=== PATIENT | male | born 1975 | race Caucasian/White ===

== ENCOUNTER → 2017-05-26 14:47 | Outpatient (POV) | payer BC, SELFPAY | PROVIDERS: Visit Provider Physician Assistant | DX: Z00.00 Encounter for general adult medical examination without abnormal findings (principal) ==

== ENCOUNTER → 2017-07-21 16:37 | Outpatient (CLI) | payer BC, SELFPAY ==
[2017-07-21 17:21] LABS: Basophils % 0.6 % (0.1-2.0); Eosinophils # 0.1 K/mm3 (0.0-0.4); Eosinophils % 2.1 % (0.1-12.0); Hemoglobin 12.5 g/dL (14.1-18.0); Lymphocytes # 1.2 K/mm3 (0.7-4.5); Lymphocytes % 27.8 K/mm3 (10-50); Mean Corpuscular HGB Conc 33.8 g/dL (31.8-35.4); Mean Corpuscular Hemoglobin 30.9 pg (27.0-31.2); Mean Corpuscular Volume 91.4 fl (80-94); Mean Platelet Volume 6.7 fl (7.4-10.4); Monocytes # 0.4 K/mm3 (0.1-1.0); Neutrophils # 2.5 K/mm3 (1.8-7.8); Neutrophils % 59.5 % (37.0-80.0); Platelet Count 273 K/mm3 (142-424); Red Blood Count 4.05 M/mm3 (4.60-6.20); Red Cell Distribution Width 12.3 % (11.5-17.5); White Blood Count 4.2 K/mm3 (4.8-10.8)
[2017-07-21 18:00] LABS: Anion Gap 10.1 mEq/L (5-15); Blood Urea Nitrogen 19 mg/dL (7-18); Carbon Dioxide 29 mmol/L (21.0-32.0); Chloride 87 mmol/L (98-107); Creatinine,Serum 0.64 mg/dL (0.70-1.30); Estimated Glomerular Filt Rate 136 ml/min (>60); GFR (African American) 164 ML/MIN (>60); Glucose 105 mg/dL (74-106); Potassium 5.1 mmoL/L (3.5-5.1); Sodium 121 mmol/L (136-145)
== END ==
PROVIDERS: Visit Provider Surgery
DX: Z01.818 Encounter for other preprocedural examination (principal); K40.90 Unilateral inguinal hernia, without obstruction or gangrene, not specified as recurrent
CPT/HCPCS: 36415; 80048; 85025

== ENCOUNTER → 2019-10-04 17:04 | Outpatient (CLI) | payer BC, SELFPAY ==
[2019-10-06 13:31] LABS: Covid-19 Nasal PCR Sendout Lex Not Detected
== END ==
PROVIDERS: PCP Family Medicine; Visit Provider Family Medicine
DX: Z03.818 Encounter for observation for suspected exposure to other biological agents ruled out (principal)
CPT/HCPCS: U0004

== ENCOUNTER 2022-02-15 18:03 | Emergency (ER) | payer BC, SELFPAY ==
[2022-02-15 19:50] VITALS: BP 148/78; PULSE 78; RESP 17; TEMP 36.6; O2SAT 99; BMI 24.2
--- NOTE | 2022-02-15 20:08 | EXP.UTC ---
Discharge Plan Disposition Patient Disposition: Home, Self-Care Condition: Good Prescriptions Prescriptions: New azithromycin [Zithromax Z-Carlitos] 250 mg tablet See Rx Instructions .ROUTE .COMPLEX 5 Days Qty: 6 0RF Rx Instructions: For 250 mg dose pack: take 500 mg today (day 1), then 250 mg for 4 days (days 2-5) benzonatate 100 mg capsule 100 mg PO TID PRN (Reason: cough) Qty: 30 0RF methylprednisolone [Medrol (Cariltos)] 4 mg tablets,dose pack See Rx Instructions .Route .COMPLEX 6 Days Qty: 21 0RF Rx Instructions: taper pack; No Action losartan 50 MG tablet 50 mg PO DAILY Referrals Follow up/Referrals: Hollis Guerrero MD [Primary Care Provider] - See instructions Activity Restrictions/Add. Instructions Additional Instructions/Restrictions: *Monitor Temp, Over the counter Motrin or Tylenol as directed/as needed Tylenol every 4 hours and Motrin every 6 hours (as long as your family doctor has told you that you can take it) for fever or pain. and straight to ER if unable to lower temp less than 101.0 after medication given *Warm salt water gargles may help to soothe the throat *Throat Lozenges? *Warm fluids like tea with honey may help to soothe the throat? *Sleep elevated *Humidifier/Vaporizer Take medication as prescribed Follow up IMMEDIATELY for new or worsening symptoms or no Noticeable improvement over the next 48-72 hours. 911 for difficulty breathing or swallowing Clinical Impressions Clinical Impression: URI (upper respiratory infection) Instructions Patient Instructions: Sore Throat, DI for Sinusitis Discharge ED Provider: Charo Strauss [facility] [place] HPI General Stated complaint: COUGH, CONGETION Mode of Arrival: Ambulatory Source of Information: Patient Limitations: No Limitations Time Seen by Provider: 02/15/22 20:08 Description of Symptoms (Recalled from Triage Doc. by RN): PATIENT C/O COUGH, RUNNY NOSE AND SINUS DRAINAGE SINCE YESTERDAY HEENT Symptoms (Recalled from RN notes): Yes Resp Symptoms (Recalled from RN notes): Yes Skin Symptoms (Recalled from RN notes): No MS Symptoms (Recalled from RN notes): No Functional Status (Recalled from RN notes): WNL History of Present Illness Provider Complaint: Patient states that he has been having sinus congestion and pressure with drainage in the back of his throat State that feels like it is trying to move into his chest since yesterday it has got worse so he came in tonight to get checked Related Data Home Medications Medication Instructions Recorded Confirmed losartan 50 mg tablet 50 mg PO DAILY blood pressure 07/23/17 12/25/18 Previous Rx's Medication Instructions Recorded azithromycin 250 mg tablet See Rx Instructions PO .COMPLEX 5 02/15/22 (Zithromax Z-Carlitos) days #6 tabs benzonatate 100 mg capsule 100 mg PO TID PRN cough #30 caps 02/15/22 methylprednisolone 4 mg tablets in See Rx Instructions .Route 02/15/22 a dose pack (Medrol (Carlitos)) .COMPLEX 6 days #21 tabs Allergies Allergy/AdvReac Type Severity Reaction Status Date / Time No Known Drug Allergies Allergy Verified 12/25/18 11:10 Worker's Comp Is this a Worker's Comp case?: No PFSH PFSH Medical History (Updated 02/15/22 @ 20:16 by Charo Strauss APRN) No significant past medical history Social History (Updated 02/15/22 @ 19:55 by Ilene Muñoz RN) Smoking Status: Never smoker alcohol intake: current substance use type: denies use current occupational status: employed Travel in the last 8 weeks: Inside the [place] household members: spouse housing: house current occupation: teacher current occupational exposures/hazards: Yes caffeine: Yes ROS Obtained: Yes All systems reviewed & no additional complaints except as documented and Yes Systems reviewed as appropriate & no additional complaints except as documented Constitutional Constitutional: Reports system reviewed and n
[2022-02-15 20:17] VITALS: BP 148/78; PULSE 78; RESP 17; TEMP 36.6; O2SAT 99
== END 2022-02-15 20:20 | disposition home or self-care (01) ==
PROVIDERS: Emergency Provider Nurse Practitioner; PCP Family Medicine
DX: J06.9 Acute upper respiratory infection, unspecified (principal)
CPT/HCPCS: 99212; G0463

== ENCOUNTER → 2022-05-27 07:20 | Outpatient (CLI) | payer BC, OTHER, SELFPAY ==
[2022-05-28 10:31] LABS: Testosterone,Total 526 ng/dL (264-916)
== END ==
PROVIDERS: PCP Family Medicine; Visit Provider Family Medicine
DX: R68.82 Decreased libido (principal)
CPT/HCPCS: 36415; 84403

== ENCOUNTER 2024-08-03 06:56 | Outpatient (CLI) | payer BC, SELFPAY ==
--- OUTSIDE RECORDS SUMMARY | 2024-08-03 06:59 | XMS_ITS ---
Author Organization Unknown Medications Medication Instructions Effective Dates (start - sto p) Status amoxicillin 875 MG / clavula barbie 125 MG Oral Tablet [id number]:00:00.000+00:0 0 - Completed losartan potassium 50 MG Ora l Tablet [id number]:00:00.000+00:0 0 - Completed ciclopirox 80 MG/ML Topical Solution [id number]:00:00.000+00:0 0 - Completed losartan potassium 50 MG Ora l Tablet [id number]:00:00.000+00:0 0 - Completed benzonatate 100 MG Oral Capsule [id number]:00:00.000+00:00 - Completed losartan potassium 50 MG Ora l Tablet [id number]:00:00.000+00:0 0 - Completed {21 (methylprednisolone 4 MG Oral Tablet) } Pack [id number]:00:00.000+00:0 0 - Completed losartan potassium 50 MG Ora l Tablet [id number]:00:00.000+00:0 0 - Completed {6 (azithromycin 250 MG Oral Tablet) } Pack [id number]:00:00.000+00:0 0 - Completed ciclopirox 80 MG/ML Topical Solution [id number]:00:00.000+00:0 0 - Completed Patient Care team information Name Category Status Period Participants - - Proposed period not known -
[2024-08-03 07:17] LABS: Basophils % 1.3 % (0.1-2.0); Eosinophils # 0.1 Kmm3 (0.0-0.4); Eosinophils % 2.6 % (0.1-12.0); Hematocrit 37.8 % (42.0-52.0); Hemoglobin 13.7 g/dL (14.1-18.0); Lymphocytes # 0.8 K/mm3 (0.7-4.5); Lymphocytes % 36.1 % (10-50); Mean Corpuscular HGB Conc 36.2 g/dL (31.8-35.4); Mean Corpuscular Hemoglobin 31.9 pg (27.0-31.2); Mean Corpuscular Volume 88.1 fl (80-94); Mean Platelet Volume 8.1 fl (7.4-10.4); Monocytes # 0.4 K/mm3 (0.1-1.0); Monocytes % 17.8 % (1.7-9.3); Neutrophils % 41.8 % (37.0-80.0); Nucleated Red Blood Cells # 0 10^3/uL; Nucleated Red Blood Cells % 0 %; Platelet Count 250 K/mm3 (142-424); Red Blood Count 4.29 M/mm3 (4.60-6.20); Red Cell Distribution Width 12.7 % (11.5-17.5); Red Cell Distribution Width-SD 40.6 fL; White Blood Count 2.3 K/mm3 (4.8-10.8)
[2024-08-03 08:36] LABS: Chloride 84 mmol/L (98-107); Potassium 4.6 mmoL/L (3.5-5.1); Sodium 118 mmol/L (136-145)
[2024-08-03 08:39] LABS: Anion Gap 11.6 mEq/L (5-15); Blood Urea Nitrogen 14 mg/dl (9-20); Carbon Dioxide 27 mmol/L (22.0-30.0); Cholesterol 208 mg/dl (140-200); Estimated Glomerular Filt Rate 102 ml/min (>60); GFR (African American) 123 ML/MIN (>60); Triglycerides 36 mg/dl (30-150); VLDL Cholesterol 7 mg/dL (0-40)
[2024-08-03 08:40] LABS: Calcium 9.3 mg/dl (8.4-10.2); Chol/HDL Ratio 2.1 (1-3.5); Glucose 97 mg/dl (74-100); HDL Cholesterol 98 mg/dl (40-60)
[2024-08-03 08:51] LABS: Direct LDL Cholesterol 80.43 mg/dL (100-129)
[2024-08-03 09:11] LABS: Thyroid Stimulating Hormone 2.22 uIU/mL (0.465-4.68)
[2024-08-03 10:21] LABS: Uric Acid 2.3 mg/dl (3.5-8.5)
[2024-08-03 10:52] LABS: Prostate Specific Ag Screen 0.2 ng/ml (0.0-4.0)
[2024-08-05 03:42] LABS: Osmolality, Urine 544 mOsmol/kg (.)
[2024-08-05 08:33] LABS: Prolactin 9.3 ng/mL (3.6-25.2)
== END 2024-08-03 23:59 | disposition home or self-care (01) ==
LOC: LAB 06:58
PROVIDERS: PCP Nurse Practitioner Family; Visit Provider Nurse Practitioner Family
DX: E87.1 Hypo-osmolality and hyponatremia (principal); R35.1 Nocturia
CPT/HCPCS: 36415; 80048; 80061; 82533; 83935; 84146; 84443; 84540; 84550; 85025; G0103

== ENCOUNTER 2024-09-07 10:09 | Outpatient (CLI) | payer BC, SELFPAY ==
[2024-09-07 10:46] LABS: Basophils % 0.8 % (0.1-2.0); Eosinophils # 0.1 Kmm3 (0.0-0.4); Eosinophils % 1.6 % (0.1-12.0); Hematocrit 38.5 % (42.0-52.0); Hemoglobin 13.5 g/dL (14.1-18.0); Immature Granulocytes # 0.01 10^3uL; Immature Granulocytes % 0.3 %; Lymphocytes # 0.6 K/mm3 (0.7-4.5); Lymphocytes % 17.1 % (10-50); Mean Corpuscular HGB Conc 35.1 g/dL (31.8-35.4); Mean Corpuscular Volume 88.3 fl (80-94); Mean Platelet Volume 8.4 fl (7.4-10.4); Monocytes # 0.4 K/mm3 (0.1-1.0); Neutrophils # 2.5 K/mm3 (1.8-7.8); Neutrophils % 68.2 % (37.0-80.0); Nucleated Red Blood Cells # 0 10^3/uL; Nucleated Red Blood Cells % 0 %; Platelet Count 223 K/mm3 (142-424); Red Blood Count 4.36 M/mm3 (4.60-6.20); Red Cell Distribution Width 12.1 % (11.5-17.5); Red Cell Distribution Width-SD 39.5 fL; Reticulocyte % (Auto) 1.5 % (0.9-3.2); White Blood Count 3.7 K/mm3 (4.8-10.8)
[2024-09-07 11:08] LABS: Albumin Level 4.5 g/dl (3.5-5.0); Potassium 4.7 mmoL/L (3.5-5.1); Sodium 121 mmol/L (136-145)
[2024-09-07 11:10] LABS: Blood Urea Nitrogen 20 mg/dl (9-20)
[2024-09-07 11:11] LABS: Alanine Aminotransferase 25 U/L (12-78); Alkaline Phosphatase 103 U/L (38-126); Aspartate Amino Transferase 38 U/L (17-59); Bilirubin,Total 0.6 mg/dl (0.2-1.3); Calcium 8.9 mg/dl (8.4-10.2); Carbon Dioxide 30 mmol/L (22.0-30.0); Estimated Glomerular Filt Rate 89 ml/min (>60); GFR (African American) 108 ML/MIN (>60); Globulin 2.3 g/dL (1.3-3.2); Glucose 99 mg/dl (74-100); Iron 154 ug/dL (49-181); Total Protein,Serum 6.8 g/dl (6.3-8.2)
[2024-09-07 11:20] LABS: Total Iron Binding Capacity 369 ug/dL (261-462)
[2024-09-07 11:44] LABS: Lactate Dehydrogenase 212 U/L (313-618)
[2024-09-07 11:48] LABS: Ferritin 56.1 ng/ml (17.9-464)
[2024-09-07 12:27] LABS: Folate 9.31 ng/mL
[2024-09-07 12:34] LABS: Vitamin B12 832 pg/mL (239-931)
[2024-09-07 14:29] LABS: Anion Gap 8.7 mEq/L (5-15); Chloride 87 mmol/L (98-107)
[2024-09-08 13:44] LABS: Haptoglobin 38 mg/dL (29-370)
[2024-09-08 15:41] LABS: Free Kappa Lt Chains 9.4 mg/L (3.3-19.4); Free Lambda Lt Chains 11.4 mg/L (5.7-26.3)
[2024-09-08 16:41] LABS: Albumin 3.9 g/dL (2.9-4.4); Alpha-1-Globulin 0.2 g/dL (0.0-0.4); Alpha-2-Globulin 0.5 g/dL (0.4-1.0); Gamma Globulin 0.9 g/dL (0.4-1.8); Protein, Total 6.5 g/dL (6.0-8.5)
[2024-09-09 10:14] LABS: Peripheral Smear Review Scanned Result
[2024-09-09 17:13] LABS: Immunoglobulin A, Qn 187 mg/dL (90-386); Immunoglobulin G, Qn 1069 mg/dL (603-1613); Immunoglobulin M, Qn 32 mg/dL (20-172)
== END 2024-09-07 23:59 | disposition home or self-care (01) ==
PROVIDERS: PCP Nurse Practitioner Family; Visit Provider Internal Medicine Medical Oncology
DX: D72.819 Decreased white blood cell count, unspecified (principal); D64.9 Anemia, unspecified
CPT/HCPCS: 36415; 80053; 82607; 82728; 82746; 82784; 83010; 83540; 83550; 83615; 83883; 83930; 84155; 84165; 85025; 85044; 86334; 86880

== ENCOUNTER 2024-09-17 13:30 | Outpatient (CLI) | payer BC, SELFPAY ==
[2024-09-17 13:33] LABS: Microscopic, Urine URINE MICROSCOPIC (MICROSCOPIC)
[2024-09-17 15:17] LABS: Appearance,Urine CLEAR (Clear); Bilirubin,Urine Negative (Negative); Blood, Urine TRACE-L (Negative); Color,Urine YELLOW (Yellow); Glucose,Urine (UA) Negative (Negative); Ketones,Urine TRACE (Negative); Leukocyte Esterase,Urine Negative (Negative); Nitrate,Urine Negative (Negative); PH,Urine 6.5 (5.0-8.5); Protein,Urine Negative (Negative); Urobilinogen,Urine 0.2 EU/dl (0.2)
[2024-09-17 15:30] LABS: Bacteria,Urine Trace /lpf; Calcium Oxalate Crystals,Urine Trace /lpf; RBC,Urine Occasional #/hpf (0-3); WBC,Urine Occasional #/hpf (0-3)
== END 2024-09-17 23:59 | disposition home or self-care (01) ==
LOC: LAB 13:31
PROVIDERS: PCP Nurse Practitioner Family; Visit Provider Internal Medicine Medical Oncology
DX: D64.9 Anemia, unspecified (principal)
CPT/HCPCS: 81001

== ENCOUNTER 2024-09-22 07:54 | Outpatient (CLI) | payer BC, SELFPAY ==
--- NOTE | 2024-09-22 08:00 | US_ITS ---
FINAL REPORT CLINICAL HISTORY: Check for reasoning of blood loss FINDINGS: Sonographic images of the right upper quadrant and spleen were obtained. The pancreas is obscured.The liver has an unremarkable appearance. The gallbladder is distended. There is no evidence of stones. There is no evidence of biliary ductal dilatation.The common duct measures 5 mm. Limited images of the right kidney are unremarkable. The spleen is difficult to visualize. IMPRESSION: Unremarkable right upper quadrant ultrasound. Reviewed, Interpreted and Dictated by Lazaro Byrd MD Transcribed by Yeny Edgar Authenticated and [facility]
== END 2024-09-22 23:59 | disposition home or self-care (01) ==
LOC: RAD 07:54
PROVIDERS: PCP Nurse Practitioner Family; Visit Provider Internal Medicine Medical Oncology
DX: D64.9 Anemia, unspecified (principal)
CPT/HCPCS: 76705